=== PATIENT | male | born 1970 | race Caucasian/White ===

== ENCOUNTER 2023-01-11 16:56 | Emergency (ER) | payer OTHER, SELFPAY ==
[2023-01-11 17:06] VITALS: BP 157/102; PULSE 83; RESP 14; TEMP 35.9; O2SAT 95; BMI 34.0
--- NOTE | 2023-01-11 17:33 | ED.GENADULT ---
HPI - General Adult General Date Seen: 01/11/23 Chief complaint: Laceration/Wound Stated complaint: lac on r. thumb Time Seen by Provider: 01/11/23 17:05 Source: patient Mode of arrival: ambulatory Limitations: no limitations History of Present Illness HPI narrative: Patient is a 52-year-old who presents for evaluation of laceration of his right thumb. He was using a plate grinder to stand some plywood, he says the grinding wheel kicked back and lacerated the tip of his right thumb. No numbness or loss of function, no other complaints. Tetanus up-to-date. Related Data Home Medications Medication Instructions Recorded Confirmed levothyroxine 150 mcg tablet 150 mcg PO DAILY 01/11/23 01/11/23 (Euthyrox) lisinopril 20 mg tablet 20 mg PO QDAY 01/11/23 01/11/23 Allergies Allergy/AdvReac Type Severity Reaction Status Date / Time cyclobenzaprine AdvReac Unknown Ver[facility]/11/23 [facility]:04 [facility] Social History Smoking Status: Former smoker How often do you have a drink containing alcohol: 4 or more times a week AUDIT-C Alcohol total score: 4 Non-prescribed substance use: denies use Exam Narrative: Exam Narrative: Vital signs reviewed In general, alert, well-appearing male. Extremities: Examination of the right thumb shows a 1 1/2 cm laceration slightly v-shaped at the tip of the thumb. A little bit of active venous bleeding is noted. CMS intact. Skin: Otherwise warm dry and intact. Const: Vital Signs, click to edit/add: Vital Signs - 24 hr 01/11/23 17:06 Temperature 96.7 F L Pulse Rate [Pulse Oximeter] 83 Respiratory Rate 14 Blood Pressure [Le ft Upper Arm] 157/102 H Pulse Oximetry 95 Oxygen Delivery Me thod Room Air Documenting provider has reviewed patient's vital signs: yes Course Course ED Course: Procedure note: I elected to use local rather than doing a digital block based on the size of this and location. It was anesthetized using lidocaine with epinephrine and then cleaned and explored, no evidence of foreign body or injury to deeper structures. I used 2 simple interrupted superficial sutures as well as 1 horizontal mattress suture on an area where there was a little more gaping. He tolerated this well, no immediate complication. Dressing applied by the tech. Routine wound care, return for signs of infection. Suture removal recommended in 7-10 days, he says he will go to the [facility] for that. Vital Signs Vital signs: Initial Vital Signs Temperature 96.7 F L 01/11/23 17:06 Temperature Source Temporal Artery Scan 01/11/23 17:06 Pulse Rate 83 01/11/23 17:06 Pulse Rhythm Regular 01/11/23 17:06 Respiratory Rate 14 01/11/23 17:06 Blood Pressure 157/102 H 01/11/23 17:06 Blood Pressure Mean 120 H 01/11/23 17:06 Blood Pressure Position Sitting 01/11/23 17:06 Pulse Oximetry 95 01/11/23 17:06 Oxygen Delivery Method Room Air 01/11/23 17:06 Vital Signs Temperature 96.7 F L 01/11/23 17:06 Pulse Rate 83 01/11/23 17:06 Respiratory Rate 14 01/11/23 17:06 Blood Pressure 157/102 H 01/11/23 17:06 Pulse Oximetry 95 01/11/23 17:06 Oxygen Delivery Method Room Air 01/11/23 17:06 Temperature 96.7 F L 01/11/23 17:06 Pulse Rate 83 01/11/23 17:06 Respiratory Rate 14 01/11/23 17:06 Blood Pressure 157/102 H 01/11/23 17:06 Pulse Oximetry 95 01/11/23 17:06 Oxygen Delivery Method Room Air 01/11/23 17:06 Discharge Plan Discharge Clinical Impression: Laceration of thumb Patient Disposition: Home, Self-Care Condition: Improved Instructions: Finger Laceration (ED) Additional Instructions: Routine wound care. Suture removal in 7-10 days at your clinic. Return for signs of infection. Prescriptions: No Action lisinopril 20 mg tablet 20 mg PO QDAY levothyroxine [Euthyrox] 150 mcg tablet 150 mcg PO DAILY Stand Alone Forms: [place]am .fr [place] Info Instructions
[2023-01-11 18:01] VITALS: BP 157/102; PULSE 83; RESP 14; TEMP 35.9
== END 2023-01-11 18:01 | disposition home or self-care (01) ==
LOC: ED 17:58
PROVIDERS: Emergency Provider Emergency Medicine
DX: S61.011A Laceration without foreign body of right thumb without damage to nail, initial encounter (principal); W29.8XXA Contact with other powered hand tools and household machinery, initial encounter
CPT/HCPCS: 12001; 99283

== ENCOUNTER 2023-09-19 20:52 | Outpatient (CLI) | payer OTHER, SELFPAY | END 2023-09-19 20:53 | disposition home or self-care (01) | PROVIDERS: Visit Provider Nurse Practitioner Family | DX: G47.33 Obstructive sleep apnea (adult) (pediatric) (principal) | CPT/HCPCS: 95811 ==

== ENCOUNTER 2024-11-18 14:15 | Outpatient (CLI) | payer OTHER, SELFPAY ==
--- NOTE | 2024-11-18 14:30 | CRLHL7_ITS ---
For Patients: As a result of the 21st Century Cures Act, medical imaging exams and procedure reports are released immediately into your electronic medical record. You may view this report before your referring provider. If you have questions, please contact your health care provider. EXAM: MRI OF THE RIGHT SHOULDER, WITHOUT CONTRAST CLINICAL INDICATION: Shoulder pain. PRIOR SURGERY: None reported. COMPARISON PLAIN FILMS: None available at time of interpretation. COMPARISON CROSS-SECTIONAL IMAGING STUDIES: None available at time of interpretation. TECHNICAL: Axial, sagittal oblique and coronal oblique T1, PD, PD FS and T2-weighted images. 1.5 Arlette MR scanner. Shoulder surface coil. FINDINGS: GLENOHUMERAL JOINT: Effusion/Cyst: Physiologic quantity of joint fluid. No synovitis. No paralabral or periarticular cyst or ganglion. Humeral Head Articular Cartilage: No osteochondral lesion or abnormality. Glenoid Articular Cartilage: No osteochondral lesion or abnormality. Loose Bodies: No appreciable loose bodies. Capsule: No convincing evidence of adhesive capsulitis or capsular injury. OSSEOUS STRUCTURES: Fifield screw site from biceps tenodesis in the anterior humeral head. CORACOACROMIAL ARCH: Acromial Morphology: Type 2 gracile acromial morphology. No abnormal lateral or anterior downward sloping of the acromion. No os acromiale. No significant subacromial spur. Likely prior acromioplasty. Acromiohumeral Interval: The acromiohumeral interval is adequately patent. At its narrowest, the interval measures 6 mm. No abnormal thickening of the coracoacromial ligament. Coracohumeral Interval: The coracohumeral interval is normal. At its narrowest, the coracohumeral interval measures greater than 10 mm. Coracoid index is 14 mm. ACROMIOCLAVICULAR JOINT REGION: AC Joint: Mild arthrosis with small effusion and edematous hypertrophy of the capsule superiorly. Possible undersurface surgical subacromial decompression. Ligaments: The coracoclavicular ligaments are intact. BURSAE: Subacromial-Subdeltoid: Small amount of fluid and synovitis under the acromion and proximal deltoid. Subcoracoid: No abnormal bursal edema, thickening or bursal fluid. ROTATOR CUFF TENDONS AND MUSCLES AND DELTOID: Supraspinatus: Thinned distal supraspinatus. Probable pinpoint full-thickness non retracted defect posterior footplate into the conjoined insertion with diameter less than 5 mm. Intermediate signal frayed appearance of the somewhat tapered proximal tendon. Grade 1 muscle atrophy. Infraspinatus: Patchy tendinosis expands the distal tendon and foot plate. No significant tear. Intramuscular ganglion along the anterior distal musculotendinous junction. No atrophy or edema in the muscle. Teres Minor: No tendinosis, tendon tearing, muscle atrophy or muscle edema. Subscapularis: Indistinct thin remnant of inferior and proximal tendon with full-thickness chronic appearing turning superiorly and through the rotator interval. Minor grade 1 muscle atrophy. Deltoid: No muscle atrophy or edema. BICEPS TENDON, LONG HEAD: Intact biceps tenodesis. No tenosynovitis. GLENOID LABRUM: Small labrum likely from prior debridement superiorly and anteriorly with relatively maintained appearance inferiorly and posteriorly. OTHER FINDINGS: There is no abnormality within the suprascapular or spinoglenoid notches nor within the quadrilateral space. No axillary adenopathy or mass. IMPRESSION: 1. 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 Prominent partial tearing supraspinatus may reach full-thickness non-retracted tear at the posterior footplate and tendon. Mild grade 1 muscle atrophy supraspinatus and subscapularis. 2. Intact biceps tenodesis. 3. Appearance favoring prior acromioplasty and probably a subacromial decompression. 4. Mild subacromial/subdeltoid bursitis. Dictated by Gonzalo Vergara MD @ 11/19/2024 1:59:13 PM (Electronically Signed)
== END 2024-11-18 14:16 | disposition home or self-care (01) ==
LOC: MRI 14:15
PROVIDERS: Visit Provider Physician Assistant
DX: M25.511 Pain in right shoulder (principal); M75.101 Unspecified rotator cuff tear or rupture of right shoulder, not specified as traumatic; M75.51 Bursitis of right shoulder
CPT/HCPCS: 73221